=== PATIENT | male | born 1965 | race Caucasian/White ===

== ENCOUNTER 2025-05-22 09:30 | Outpatient (CLI) | payer OTHER, MEDICAID, SELFPAY | END 2025-05-22 09:31 | disposition home or self-care (01) | PROVIDERS: Family Provider Family Medicine; PCP Family Medicine; Visit Provider Family Medicine | DX: Z13.6 Encounter for screening for cardiovascular disorders (principal) | CPT/HCPCS: 80053; 80061; 84153; 84439; 84443; 85025 ==